=== PATIENT | male | born 1990 | race Caucasian/White ===

== ENCOUNTER 2018-02-21 22:23 | Emergency (ER) | payer OTHER, BC ==
[~2018-02-21] VITALS: Ht 175.3 cm; Wt 82.7 kg
[~2018-02-21 22:23] MED LIST: BACTRIM,SEPT1 TABLET PO; KEFLEX500 MG PO; KETOCONAZOLE60 GM TP; MEDROL DOSEPAK4 MG PO; METAMUCIL PACKE1 PKT PO; NAPROSYN500 MG PO; TOBREX5 ML BOTH EYES
[2018-02-21 23:46] VITALS: BP 148/89
== END 2018-02-22 00:09 | disposition home or self-care (01) ==
LOC: EME 22:23
PROC: 0HQHXZZ Repair Right Upper Leg Skin, External Approach (ICD-10-PCS; principal; 2018-02-21)
DX: S71.111A Laceration without foreign body, right thigh, initial encounter (principal); W26.8XXA Contact with other sharp object(s), not elsewhere classified, initial encounter; Y93.89 Activity, other specified; Y99.0 Civilian activity done for income or pay
CPT/HCPCS: 99281; 99284

== ENCOUNTER 2018-03-04 14:04 | Emergency (ER) | payer OTHER, BC ==
[~2018-03-04] VITALS: Ht 177.8 cm; Wt 80.4 kg
[2018-03-04] MEDS ORDERED: KEFLEX500 MG PO (15:11)
[2018-03-04 15:16] VITALS: BP 126/70
== END 2018-03-04 15:17 | disposition home or self-care (01) ==
LOC: EME 14:04
DX: S71.111D Laceration without foreign body, right thigh, subsequent encounter (principal); Z72.0 Tobacco use
CPT/HCPCS: 99281; 99283